=== PATIENT | female | born 1970 | race African-American/Black ===

== ENCOUNTER 2021-09-22 23:11 | Emergency (ER) | payer SELFPAY ==
[~2021-09-22] VITALS: Ht 170.2 cm; Wt 73.0 kg
[2021-09-23 00:07] LABS: HEMATOCRIT 35.9 % (37.0-47.0); HEMOGLOBIN 12.4 g/dl (12.0-16.0); IMMATURE GRANULOCYTES 0.2 % (0.0-5.0); MEAN CELL VOLUME 80.7 fL CALC (80.0-100.0); MEAN CORPUSCULAR HGB 27.9 pG CALC (26.0-32.0); MEAN CORPUSCULAR HGB CONC 34.5 g/dL CAL (32.0-36.0); NEUT# 3.5 thou/uL (2.00-7.15); RED BLOOD COUNT 4.45 mill/uL (4.20-5.60); RED CELL DISTRI WIDTH 13.9 % (11.5-15.5)
[2021-09-23] MEDS ORDERED: MEDICAL MARIJUANA (00:13)
[2021-09-23 00:23] LABS: ALKALINE PHOSPHATASE 90 u/l (38-126); BILIRUBIN, TOTAL 0.2 mg/dL (0.0-1.4); BUN 15 mg/dL (7-17); BUN/CREATININE RATIO 20 (12-20 (CALC)); CARBON DIOXIDE 27 mmol/l (22-30); CHLORIDE 106 mmol/l (95-108); CREATININE 0.7 mg/dL (0.5-1.0); GFR FOR AFR.AMER. > 60 ML/MIN (>=60 (CALC)); GFR OTHER RACES > 60 ML/MIN (>=60 (CALC)); SGOT/AST 21 u/l (14-36); SODIUM 141 mmol/l (137-146); TOTAL PROTEIN 7.3 g/dL (6.3-8.2)
[2021-09-23 00:25] LABS: ANION GAP 12 (6-22 (CALC)); POTASSIUM 3.8 mmol/l (3.5-5.1)
[2021-09-23 00:35] LABS: MYOGLOBIN 36 ng/mL (0 - 62)
[2021-09-24] VITALS (7 sets, daily range): BP systolic 92–142; BP diastolic 46–97
== END 2021-09-23 01:37 | disposition home or self-care (01) | DRG 312 ==
LOC: ED 23:11
PROVIDERS: Emergency Medicine
DX: R55 Syncope and collapse (principal); G23.8 Other specified degenerative diseases of basal ganglia; K21.9 Gastro-esophageal reflux disease without esophagitis
CPT/HCPCS: S0164

== ENCOUNTER 2023-03-23 12:23 | Emergency (ER) | payer OTHER ==
[~2023-03-23] VITALS: Ht 170.2 cm; Wt 66.2 kg
[~2023-03-23 12:23] MED LIST: MEDICAL MARIJUANA
[2023-03-23 12:37] VITALS: BP 125/82
== END 2023-03-23 15:06 | disposition home or self-care (01) | DRG 761 ==
LOC: ED 12:23
DX: T19.2XXA Foreign body in vulva and vagina, initial encounter (principal); W44.8XXA Other foreign body entering into or through a natural orifice, initial encounter

== ENCOUNTER 2024-03-21 23:03 | Emergency (ER) | payer OTHER ==
[~2024-03-21] VITALS: Ht 165.1 cm; Wt 71.0 kg
[~2024-03-21 23:03] MED LIST changes: +ZOFRAN4 MG/TAB PO
[2024-03-22] MEDS ORDERED: ACETAMINOPHEN 500 MG TAB PO ONE (00:25)
[2024-03-22] MEDS ORDERED: NAPROXEN 250 MG/TAB PO ONE (00:25)
[2024-03-22 00:30] LABS: BASO% 0.2 % (0-3); IMMATURE GRANULOCYTES 0.2 % (0.0-5.0); LYMPH% 7.7 % (15-41); MEAN CELL VOLUME 83.3 fL CALC (80.0-100.0); MEAN CORPUSCULAR HGB 27.7 pG CALC (26.0-32.0); MEAN CORPUSCULAR HGB CONC 33.2 g/dL CAL (32.0-36.0); MONO% 17.2 % (2-13); NEUT# 4.34 thou/uL (2.00-7.15); NEUT% 74.7 % (42-76); RED BLOOD COUNT 4.19 mill/uL (4.20-5.60); RED CELL DISTRI WIDTH 13.7 % (11.5-15.5)
[2024-03-22 00:32] LABS: HEMATOCRIT 34.9 % (37.0-47.0); HEMOGLOBIN 11.6 g/dl (12.0-16.0)
[2024-03-22] MEDS ORDERED: PROMETHAZINE HCL 25 MG/ML AMP IM ONE (00:35)
[2024-03-22] MEDS ORDERED: SODIUM CHLORIDE 0.9% 1,000 ML IV ONE (00:35)
[2024-03-22] MEDS ORDERED: PAXLOVID PO (01:09)
[2024-03-22 01:29] VITALS: BP 108/78
== END 2024-03-22 03:00 | disposition home or self-care (01) | DRG 179 ==
LOC: ED 23:03
PROVIDERS: Family Medicine
DX: U07.1 COVID-19 (principal); R50.9 Fever, unspecified; R05.9 Cough, unspecified; M79.10 Myalgia, unspecified site; R51.9 Headache, unspecified; Z72.0 Tobacco use